=== PATIENT | female | born 1990 | race Caucasian/White ===

== ENCOUNTER 2019-08-12 11:55 | Emergency (ER) | payer BC, MEDICAID ==
[~2019-08-12] VITALS: Ht 172.7 cm; Wt 56.3 kg
[2019-08-12 11:57] VITALS: BP 110/79
--- NOTE | 2019-08-12 12:19 | NUR ---
PT DECIDED TO LEAVE AMA. REGISTRATION CALLED TO LET ME KNOW AROUND 12:15-SM
== END 2019-08-12 12:24 | disposition left against medical advice (07) ==
LOC: ED 12:10
DX: R68.89 Other general symptoms and signs (principal); Z53.21 Procedure and treatment not carried out due to patient leaving prior to being seen by health care provider